=== PATIENT | female | born 1945 | race Caucasian/White ===

== ENCOUNTER 2020-11-14 17:27 | Observation (INO) | payer MEDICARE ==
[~2020-11-14] VITALS: Ht 162.6 cm; Wt 63.5 kg
[2020-11-14 18:07] LABS: BASOPHILS # (AUTO) 0.1 (0.0-0.1); BASOPHILS % 0.6 % (0.0-1.0); EOSINOPHILS # (AUTO) 0.1 (0.0-0.4); EOSINOPHILS % 0.6 % (0.0-6.0); HEMOGLOBIN 13.7 g/dL (12.0-16.0); LYMPHOCYTES # (AUTO) 1.4 (1.0-3.2); LYMPHOCYTES % 17.4 % (18.0-39.1); MEAN CORPUSCULAR HEMOGLOBIN 30.3 pg (28-32); MEAN CORPUSCULAR HGB CONC 34.3 g/dL (31-35); MEAN CORPUSCULAR VOLUME 88.5 fL (81-99); MONOCYTES # (AUTO) 0.7 (0.2-0.8); MONOCYTES % 8.5 % (4.4-11.3); NEUTROPHILS # (AUTO) 5.8 (2.1-6.9); NEUTROPHILS % 72.8 % (38.7-80.0); PLATELET COUNT 192 x10e3/uL (140-360); RED BLOOD COUNT 4.52 x10e6/uL (3.6-5.1); RED CELL DISTRIBUTION WIDTH 12.9 % (11.7-14.4)
[2020-11-14 18:13] LABS: INR 0.98; PROTHROMBIN TIME 13.5 seconds (11.9-14.5)
[2020-11-14 18:22] LABS: ALBUMIN 4.3 g/dL (3.5-5.0); ALBUMIN/GLOBULIN RATIO 1.5 (0.8-2.0); ANION GAP 15.4 mmol/L (8-16); CALCIUM 9.9 mg/dL (8.4-10.2); CLARITY,URINE SL CLOUDY (CLEAR); COLOR,URINE STRAW (YELLOW); CREATININE, SERUM 2.22 mg/dL (0.57-1.11); KETONES,URINE TRACE (NEGATIVE); LEUKOCYTE ESTERASE ,URINE NEGATIVE (NEGATIVE); NITRITE,URINE NEGATIVE (NEGATIVE); POTASSIUM 3.4 mmol/L (3.5-5.1); PROTEIN,URINE DIPSTICK >=300 (NEGATIVE); URINE UROBILINOGEN 0.2 mg/dL (0.2 - 1)
[2020-11-14 18:34] LABS: BACTERIA,URINE MODERATE /HPF; EPITHELIAL CELLS,URINE FEW /LPF; TRANSITIONAL EPI CELLS,URINE MODERATE; WBC,URINE (MAN) 0-5 /HPF (0-5)
[2020-11-14] MEDS ORDERED: KEFLEX500 MG PO (19:30)
[2020-11-14] MEDS ORDERED: CEFTRIAXONE SOD 1 GM/NS 50 ML 50 ML IV ONE (21:30)
[2020-11-14 21:44] VITALS: BP 113/52
[2020-11-14] MEDS ORDERED: CEFTRIAXONE SOD 1 GM VIAL ONE (21:44)
[2020-11-14] MEDS ORDERED: ACETAMINOPHEN 325 MG TAB PO PRN (21:45)
[2020-11-14] MEDS ORDERED: ONDANSETRON HCL INJ 2MG/ML 2ML 2 MG/ML VIAL IV PRN (21:45)
[2020-11-14] MEDS: CRESTOR 10MG PO SCH (22:11)
[2020-11-14 23:00] VITALS: BP 113/52
[2020-11-14] MEDS ORDERED: FISH OIL 1,0001 EAC2 PO (23:48)
[2020-11-14] MEDS ORDERED: ASPIRIN81 MG PO (23:48)
[2020-11-14] MEDS ORDERED: AMLODIPINE BESY10 MG PO (23:48)
[2020-11-14] MEDS ORDERED: PLAVIX75 MG PO (23:48)
[2020-11-14] MEDS ORDERED: CRESTOR10 MG PO (23:48)
[2020-11-15] VITALS (8 sets, daily range): BP systolic 92–114; BP diastolic 46–57
[2020-11-15 05:30] LABS: BASOPHILS % 0.8 % (0.0-1.0); EOSINOPHILS # (AUTO) 0.2 (0.0-0.4); EOSINOPHILS % 3.1 % (0.0-6.0); HEMATOCRIT 35.6 % (34.2-44.1); HEMOGLOBIN 12.4 g/dL (12.0-16.0); LYMPHOCYTES # (AUTO) 1.3 (1.0-3.2); MEAN CORPUSCULAR HEMOGLOBIN 30.9 pg (28-32); MEAN CORPUSCULAR HGB CONC 34.8 g/dL (31-35); MEAN CORPUSCULAR VOLUME 88.8 fL (81-99); MONOCYTES # (AUTO) 0.6 (0.2-0.8); NEUTROPHILS % 58.9 % (38.7-80.0); PLATELET COUNT 182 x10e3/uL (140-360); RED BLOOD COUNT 4.01 x10e6/uL (3.6-5.1); RED CELL DISTRIBUTION WIDTH 12.7 % (11.7-14.4)
[2020-11-15 05:58] LABS: CHOL/HDL RATIO 2.9 (3.0-3.6)
[2020-11-15 06:06] LABS: THYROID STIMULATING HORMONE 0.938 uIU/mL (0.350-4.940)
[2020-11-15 06:52] LABS: ANION GAP 14.7 mmol/L (8-16); CALCIUM 9.2 mg/dL (8.4-10.2); CREATININE, SERUM 1.65 mg/dL (0.57-1.11)
[2020-11-15 06:54] LABS: POTASSIUM 2.7 mmol/L (3.5-5.1)
[2020-11-15] MEDS ORDERED: POTASSIUM CHLORIDE 20 MEQ TAB CR PO ONE ×2 (07:35→09:00)
[2020-11-15] MEDS ORDERED: AMLODIPINE BESYLATE 10 MG TAB PO SCH (09:00)
[2020-11-15] MEDS: CLOPIDOGREL BISULFATE 75 MG TAB PO SCH (09:00)
[2020-11-15] MEDS: SODIUM CHLORIDE 0.9% 1000ML 1,000 ML IV SCH ×2 (13:41→22:30)
[2020-11-15] MEDS: CRESTOR 10MG PO SCH (20:59)
[2020-11-15] MEDS ORDERED: ASPIRIN 81 MG CHEW TAB PO SCH (21:00)
[2020-11-16] VITALS: BP 115/56
[2020-11-16 04:45] VITALS: BP 106/57
[2020-11-16 06:13] LABS: ALBUMIN 3.2 g/dL (3.5-5.0); ALBUMIN/GLOBULIN RATIO 1.3 (0.8-2.0); ANION GAP 11.7 mmol/L (8-16); CALCIUM 8.2 mg/dL (8.4-10.2); CREATININE, SERUM 1.17 mg/dL (0.57-1.11); POTASSIUM 3.7 mmol/L (3.5-5.1)
[2020-11-16 07:54] VITALS: BP 117/55
[2020-11-16 08:04] VITALS: BP 117/55
[2020-11-16] MEDS: CLOPIDOGREL BISULFATE 75 MG TAB PO SCH (08:41)
[2020-11-16] MEDS: SODIUM CHLORIDE 0.9% 1000ML 1,000 ML IV SCH (08:41)
[2020-11-16 11:52] VITALS: BP 112/53
[2020-11-16 15:42] VITALS: BP 116/58
== END 2020-11-16 17:57 | disposition home or self-care (01) ==
LOC: ER 17:38 → ERHOLD 21:19 → MED/SURG 21:56
PROVIDERS: ADMIT Internal Medicine; ATTEND Internal Medicine
DX: R55 Syncope and collapse (principal); I10 Essential (primary) hypertension; I25.10 Atherosclerotic heart disease of native coronary artery without angina pectoris; E78.5 Hyperlipidemia, unspecified; Z88.0 Allergy status to penicillin; N39.0 Urinary tract infection, site not specified; W01.10XA Fall on same level from slipping, tripping and stumbling with subsequent striking against unspecified object, initial encounter; Y93.01 Activity, walking, marching and hiking; Y92.018 Other place in single-family (private) house as the place of occurrence of the external cause; N17.9 Acute kidney failure, unspecified; E87.6 Hypokalemia; I65.29 Occlusion and stenosis of unspecified carotid artery; S00.03XA Contusion of scalp, initial encounter; I73.9 Peripheral vascular disease, unspecified; Z20.828 Contact with and (suspected) exposure to other viral communicable diseases
CPT/HCPCS: 36415 ×3; 70450; 71045; 72125; 72170; 80048; 80053 ×2; 80061; 81001; 83880; 84443; 84484 ×2; 85025 ×2; 85610; 87086; 93005; 93306; 93880; 99284; G0378 ×3; J0696; J7030 ×2; U0002